=== PATIENT | female | born 1990 | race American Indian/Alaskan Native ===

== ENCOUNTER 2017-04-18 10:48 | Day surgery (SDC) | payer OTHER ==
[~2017-04-18] VITALS: Ht 152.4 cm; Wt 74.6 kg
[~2017-04-18 10:48] MED LIST: CITA20 PO; CYCL10 PO; Depo-Prove150 MG/11; GLIP10ER PO; HYDR1TAB94 PO; Humulin R500 UNIT/1 IJ; IBUP800 PO; INSN100I SUBQ; INSR10I SUBQ; OXCA150 PO; OXYACE5T PO; PANT20 PO; PIOG30 PO; Sudogest30 MG PO; TRAM50; TRAZ150T57; Zithromax250 MG PO; Zofran Odt4 MG PO
[2018-03-29] MEDS ORDERED: Zofran4 MG PO (14:24)
[2018-03-29] MEDS ORDERED: KETO10 PO (14:24)
== END 2017-04-18 13:29 | disposition home or self-care (01) ==
LOC: ORSCSDS 10:48
PROVIDERS: Internal Medicine Gastroenterology
PROC: 0DBE8ZX Excision of Large Intestine, Via Natural or Artificial Opening Endoscopic, Diagnostic (ICD-10-PCS; principal; 2017-04-18 12:00)
DX: K62.5 Hemorrhage of anus and rectum (principal); R10.9 Unspecified abdominal pain; R19.4 Change in bowel habit; E11.9 Type 2 diabetes mellitus without complications; E78.5 Hyperlipidemia, unspecified; Z87.891 Personal history of nicotine dependence; Z79.4 Long term (current) use of insulin; Z79.899 Other long term (current) drug therapy
CPT/HCPCS: 82947; 88305; J7120

== ENCOUNTER 2018-08-10 18:42 | Emergency (ER) | payer OTHER ==
[~2018-08-10] VITALS: Ht 149.9 cm; Wt 75.8 kg
[~2018-08-10 18:42] MED LIST changes: +KETO10 PO; +Zofran4 MG PO
[2018-08-10] MEDS ORDERED: BUSP5 PO (19:27)
== END 2018-08-10 21:35 | disposition home or self-care (01) ==
LOC: ER 18:42
DX: S97.82XA Crushing injury of left foot, initial encounter (principal); E11.9 Type 2 diabetes mellitus without complications; Z88.0 Allergy status to penicillin; Z88.2 Allergy status to sulfonamides; Z91.018 Allergy to other foods; Z88.8 Allergy status to other drugs, medicaments and biological substances; Z87.891 Personal history of nicotine dependence; W22.8XXA Striking against or struck by other objects, initial encounter
CPT/HCPCS: 73630

== ENCOUNTER 2018-09-04 22:50 | Emergency (ER) | payer OTHER ==
[~2018-09-04] VITALS: Ht 149.9 cm; Wt 74.8 kg
[~2018-09-04 22:50] MED LIST changes: +BUSP5 PO
== END 2018-09-05 03:34 | disposition home or self-care (01) ==
LOC: ER 22:50
DX: S60.221A Contusion of right hand, initial encounter (principal); W22.8XXA Striking against or struck by other objects, initial encounter; E11.9 Type 2 diabetes mellitus without complications; Z87.891 Personal history of nicotine dependence; Z79.899 Other long term (current) drug therapy; Z79.4 Long term (current) use of insulin
CPT/HCPCS: 29125; 73130; 96372-59; 99283-25; J1885

== ENCOUNTER 2018-11-13 06:08 | Day surgery (SDC) | payer OTHER ==
[~2018-11-13] VITALS: Ht 149.9 cm; Wt 75.0 kg
[~2018-11-13 06:08] MED LIST changes: +ATOR10 PO; +GABA600 PO; -Humulin R500 UNIT/1 IJ; +Humulin R500 UNIT/1 SC; -TRAZ150T57; +TRAZ150T57 PO
--- NOTE | 2018-11-13 06:49 | NUR ---
PT ADMITTED TO [facility]. AGREES WITH PLANNED SURGERY. LUNG SOUNDS CLEAR.
--- NOTE | 2018-11-13 10:25 | NUR ---
PT TOLERATED PUDDING, JUICE AND JELLO WITHOUT DIFFICULTIES, ONLY C/O IS GAS PAIN, PT WAS ABLE TO AMBULATED AND VOID. VERBALIZED READY FOR DC HOME AND GETTING DRESSED. STERI STRIPS TO ABD C/D/I, NO NEW OOZING. WILL CALL FOR W/C RIDE. IS HERE AND IS RIDE HOME.
--- NOTE | 2018-11-14 10:05 | NUR ---
11/14/18 1005 Yanelis Garza VERIFICATIONS: EDIT CHART.
== END 2018-11-13 10:30 | disposition home or self-care (01) ==
LOC: ORSCMMR 06:08 → ORD 07:30 → ORSCMMR 07:30
PROVIDERS: Obstetrics & Gynecology
PROC: 0UT74ZZ Resection of Bilateral Fallopian Tubes, Percutaneous Endoscopic Approach (ICD-10-PCS; principal; 2018-11-13 07:30)
DX: Z30.2 Encounter for sterilization (principal); Z87.891 Personal history of nicotine dependence; E11.9 Type 2 diabetes mellitus without complications; Z79.899 Other long term (current) drug therapy; Z79.4 Long term (current) use of insulin; E66.9 Obesity, unspecified; Z68.33 Body mass index [BMI] 33.0-33.9, adult
CPT/HCPCS: 82947; 88302; J1885; J2250; J2405; J2704; J2710; J3010; J7120; J7799

== ENCOUNTER → 2020-12-16 | Outpatient (CLI) | payer OTHER ==
[2020-12-16 15:24] LABS: Thyroid Stimulating Hormone 0.592 uIU/mL (0.360-4.800); Troponin I <0.017 ng/mL (0.000-0.040)
[2020-12-16 16:04] LABS: BASOPHILS ABSOLUTE AUTO 0.03 K/mm3 (0.00-0.23); BASOPHILS PERCENT AUTO 0 % (0-2); EOSINOPHILS ABSOLUTE AUTO 0.25 K/mm3 (0.00-0.68); EOSINOPHILS PERCENT AUTO 4 % (0-6); Hematocrit 44.9 % (33.0-51.0); Hemoglobin 15.2 g/dL (11.5-16.0); IMMATURE GRAN ABSOLUTE AUTO 0.01 K/mm3 (0.00-0.10); IMMATURE GRAN PERCENT AUTO 0 % (0-1); LYMPHOCYTES ABSOLUTE AUTO 2.21 K/mm3 (0.84-5.20); LYMPHOCYTES PERCENT AUTO 31 % (21-46); MONOCYTES ABSOLUTE AUTO 0.77 K/mm3 (0.16-1.47); MONOCYTES PERCENT AUTO 11 % (4-13); Mean Corpuscular HGB 27.4 pg (26.0-34.0); Mean Corpuscular HGB Conc 33.9 g/dL (31.5-36.5); Mean Corpuscular Volume 81 fL (80-100); Mean Platelet Volume 10.7 fL (9.1-12.4); NEUTROPHILS PERCENT AUTO 54 % (41-73); Platelet Count 281 K/mm3 (150-400); RDW Standard Deviation 37.7 fL (35.1-46.3); Red Blood Cell Count 5.55 M/mm3 (3.80-5.20); White Blood Cell Count 7.07 K/mm3 (4.00-11.30)
[2020-12-16 16:21] LABS: Alanine Aminotransfer (ALT/SGP 37 U/L (12-78); Albumin, Blood 4.2 g/dL (3.4-5.0); Albumin/Globulin Ratio 0.9 (0.8-1.8); Alk Phos 84 U/L (40-126); Anion Gap 13 mmol/L (6-16); Aspartate Aminotrans (AST/SGOT 30 U/L (12-37); Bilirubin, Total 0.5 mg/dL (0.1-1.0); Blood Urea Nitrogen 9 mg/dL (8-24); Bun/Creatinine Ratio 13.6 (12.0-20.0); CO2, Blood 25 mmol/L (21-32); Calcium, Blood 9.4 mg/dL (8.5-10.1); Chloride, Blood 99 mmol/L (98-108); Creatinine, Blood 0.66 mg/dL (0.40-1.00); Globulin, Blood 4.6 g/dL (2.2-4.0); Glomerular Filtration Rate >60 (60-); Glucose, Blood 355 mg/dL (70-99); Potassium, Blood 3.6 mmol/L (3.5-5.5); Sodium, Blood 137 mmol/L (136-145); Total Protein, Blood 8.8 g/dL (6.4-8.2)
== END | disposition home or self-care (01) ==
LOC: LAB SHORT 15:01
PROVIDERS: Physician Assistant Surgical
DX: R07.9 Chest pain, unspecified (principal); R53.83 Other fatigue
CPT/HCPCS: 80053; 84443; 84484; 85025; 85379

== ENCOUNTER 2021-12-13 22:10 | Inpatient (IN) | payer OTHER ==
[~2021-12-13] VITALS: Ht 149.9 cm; Wt 57.1 kg
[~2021-12-13 22:10] MED LIST changes: +BENZ100A PO; +XOLIDO XP118 ML TOP
[2021-12-13 23:01] LABS: BASOPHILS ABSOLUTE AUTO 0.07 K/mm3 (0.00-0.23); BASOPHILS PERCENT AUTO 0 % (0-2); EOSINOPHILS ABSOLUTE AUTO 0.35 K/mm3 (0.00-0.68); EOSINOPHILS PERCENT AUTO 2 % (0-6); Hematocrit 39.1 % (33.0-51.0); Hemoglobin 13.5 g/dL (11.5-16.0); IMMATURE GRAN ABSOLUTE AUTO 0.07 K/mm3 (0.00-0.10); IMMATURE GRAN PERCENT AUTO 0 % (0-1); LYMPHOCYTES ABSOLUTE AUTO 2.96 K/mm3 (0.84-5.20); LYMPHOCYTES PERCENT AUTO 17 % (21-46); MONOCYTES ABSOLUTE AUTO 1.12 K/mm3 (0.16-1.47); MONOCYTES PERCENT AUTO 6 % (4-13); Mean Corpuscular HGB 27.7 pg (26.0-34.0); Mean Corpuscular HGB Conc 34.5 g/dL (31.5-36.5); Mean Corpuscular Volume 80 fL (80-100); Mean Platelet Volume 9.8 fL (9.1-12.4); NEUTROPHILS ABSOLUTE AUTO 13.26 K/mm3 (1.96-9.15); NEUTROPHILS PERCENT AUTO 74 % (41-73); Platelet Count 432 K/mm3 (150-400); RDW Coefficient Variation 12.1 % (11.7-14.2); RDW Standard Deviation 35.4 fL (35.1-46.3); Red Blood Cell Count 4.88 M/mm3 (3.80-5.20); White Blood Cell Count 17.83 K/mm3 (4.00-11.30)
[2021-12-13 23:19] LABS: Albumin, Blood 3.2 g/dL (3.4-5.0); Albumin/Globulin Ratio 0.6 (0.8-1.8); Bilirubin, Total 0.5 mg/dL (0.1-1.0); Bun/Creatinine Ratio 7.1 (12.0-20.0); Calcium, Blood 9.7 mg/dL (8.5-10.1); Creatinine, Blood 0.42 mg/dL (0.40-1.00); Globulin, Blood 5.5 g/dL (2.2-4.0); Potassium, Blood 2.6 mmol/L (3.5-5.5); Total Protein, Blood 8.7 g/dL (6.4-8.2)
[2021-12-14 06:13] LABS: Albumin, Blood 2.6 g/dL (3.4-5.0); Albumin/Globulin Ratio 0.6 (0.8-1.8); Bilirubin, Total 0.7 mg/dL (0.1-1.0); Bun/Creatinine Ratio 9.4 (12.0-20.0); Calcium, Blood 8.3 mg/dL (8.5-10.1); Creatinine, Blood 0.32 mg/dL (0.40-1.00); Globulin, Blood 4.5 g/dL (2.2-4.0); Total Protein, Blood 7.1 g/dL (6.4-8.2)
[2021-12-14 06:19] LABS: Bun/Creatinine Ratio 6.3 (12.0-20.0); Calcium, Blood 8.2 mg/dL (8.5-10.1); Creatinine, Blood 0.32 mg/dL (0.40-1.00)
[2021-12-14] MEDS ORDERED: HUMULIN R500 UNIT/2 SC (10:57)
[2021-12-14] MEDS ORDERED: BYDUREON B2 MG/0.81 (11:00)
--- NOTE | 2021-12-14 11:51 | NUR ---
DR. ARANA AT BEDSIDE AT ABOUT 1000 AND TONSIL ABSCESS DRAINED AT BEDSIDE.
--- NOTE | 2021-12-14 11:52 | NUR ---
DR. WALLER CALLED AT ABOUT 1020 CONCERNING PT BLOOD SUGAR AND HOME INSULIN COVERAGE, SEE NEW ORDERS AND MED REC EDIT. DR. WALLER NOTIFIED THAT DR. ARANA WOULD LIKE TO START IV DECADRON, DR. WALLER PLANS TO SEE PT BEFORE FIRST ADMINSTRATION.
--- NOTE | 2021-12-14 13:50 | NUR ---
SPOKE WITH DR. WALLER AT THIS TIME. SHE IS AWARE OF PT POTASSIUM OF 3.0. SEE NEW ORDERS.
--- NOTE | 2021-12-14 16:48 | NUR ---
SUMMARY: NO ACUTE CHANGE TODAY. VSS, PT A/O. PT REPORTS FEELING BETTER TONIGHT AFTER ABSCESS DRAINED AND DECADRON GIVEN. PT MEDICATED FOR PAIN WITH 1 MG DILAUDID. PT UP WITH SBA FOR SAFETY. IV ANTIBIOTICS INFUSED. PT ABLE TO SWALLOW SMALL SIPS OF FULL LIQUID DIET. PT DENIES ANY SOB OR DIFFICULTLY BREATHING. WILL CTM AND REPORT TO NOC RN
--- NOTE | 2021-12-15 03:28 | NUR ---
SHIFT SUMMARY PT A&OX4, PLEASANT AND COOPERATIVE. NO ACUTE CHANGES DURING SHIFT. MEDICATING FOR PAIN WITH 1MG DILAUDID PER EMAR. ADMINISTERED ROUTINE ABX. PT TOLERATED THEIR FULL LIQUID DINNER, NO N/V. UP WITH SBA TO BATHROOM FOR SAFTEY. CALL LIGHT WITHIN REACH.
[2021-12-15 04:49] LABS: Hematocrit 33.4 % (33.0-51.0); Hemoglobin 11.4 g/dL (11.5-16.0); Mean Corpuscular HGB 28.1 pg (26.0-34.0); Mean Corpuscular HGB Conc 34.1 g/dL (31.5-36.5); Mean Corpuscular Volume 83 fL (80-100); Mean Platelet Volume 9.7 fL (9.1-12.4); Platelet Count 399 K/mm3 (150-400); RDW Coefficient Variation 12.5 % (11.7-14.2); RDW Standard Deviation 38.3 fL (35.1-46.3); Red Blood Cell Count 4.05 M/mm3 (3.80-5.20); White Blood Cell Count 17.98 K/mm3 (4.00-11.30)
[2021-12-15 05:17] LABS: Albumin, Blood 2.5 g/dL (3.4-5.0); Albumin/Globulin Ratio 0.6 (0.8-1.8); Bilirubin, Total 0.6 mg/dL (0.1-1.0); Bun/Creatinine Ratio 23.9 (12.0-20.0); Calcium, Blood 8.9 mg/dL (8.5-10.1); Creatinine, Blood 0.38 mg/dL (0.40-1.00); Globulin, Blood 4.4 g/dL (2.2-4.0); Total Protein, Blood 6.9 g/dL (6.4-8.2)
--- NOTE | 2021-12-15 18:55 | NUR ---
SHIFT SUMMARY PT HAS DONE WELL T/O SHIFT. PT HAS CONTINUED WITH SMALL AMTS PO INTAKE, STATES SHE DOES FEEL LIKE SWELLING HAS IMPROVED SINCE 2ND DOSE OF STEROIDS. ELEVATED BLOOD GLUCOSE T/O SHIFT, PT SWITCHED TO HIGH SLIDING SCALE. INDEPENDENT IN ROOM. MEDICATED TWICE FOR PAIN. VOIDING W/O DIFFICULTY. IVF 125/HR, CONTINUE AT THIS TIME PER MD.
--- NOTE | 2021-12-16 04:29 | NUR ---
SHIFT SUMMARY PT A&OX4, PLEASANT AND COOPERATIVE. NO ACUTE CHANGES DURING SHIFT, VSS. MEDICATED ONCE FOR PAIN DURING SHIFT. ADMINISTERED ROUTINE ABX. SBA TO BATHROOM FOR SAFETY. TOLERATING PO INTAKE. CALLS APPROPRIATELY, CALL LIGHT WITHIN REACH.
--- NOTE | 2021-12-16 08:10 | NUR ---
RN TO ROOM AT APROX 0750. PT APPEARS TO BE SLEEPING COMFORTABLY, AWAKEND EASILY W/VERBAL STIMULI. PT REPORTS FEELING TIRED, REQUESTING TO SLEEP. THIS RN TO COMPLETE FULL ASSESSMENT WHEN PT WAKES.
[2021-12-16 09:46] LABS: Albumin, Blood 2.4 g/dL (3.4-5.0); Anion Gap 7 mmol/L (6-16); Blood Urea Nitrogen 10 mg/dL (8-24); CO2, Blood 26 mmol/L (21-32); Calcium, Blood 8.8 mg/dL (8.5-10.1); Chloride, Blood 102 mmol/L (98-108); Creatinine, Blood 0.29 mg/dL (0.40-1.00); Glomerular Filtration Rate 147 (60-); Glucose, Blood 239 mg/dL (70-99); Phosphorus, Blood 2.9 mg/dL (2.5-4.9); Potassium, Blood 3.4 mmol/L (3.5-5.5); Sodium, Blood 135 mmol/L (136-145)
--- NOTE | 2021-12-16 18:45 | NUR ---
SHIFT SUMMARY DR ARANA TO BEDSIDE THIS AFTERNOON, BEDSIDE I&-6ML THICK PURULENT FLUID DRAINED FROM L CHRISTOPHER-TONSILAR ABCESS. PAIN IMPROVED SINCE. PT ABLE TO EAT 50% OF DINNER. BLOOD GLUCOSE IMPROVED. PER DR ARANA 2 MORE DOSES OF DECADRON TO START TODAY. CONTINUE IV ABX.
[2021-12-17 04:57] LABS: BASOPHILS PERCENT AUTO 1 % (0-2); EOSINOPHILS ABSOLUTE AUTO 0.01 K/mm3 (0.00-0.68); EOSINOPHILS PERCENT AUTO 0 % (0-6); Hematocrit 37.2 % (33.0-51.0); Hemoglobin 12.7 g/dL (11.5-16.0); IMMATURE GRAN PERCENT AUTO 2 % (0-1); LYMPHOCYTES ABSOLUTE AUTO 1.18 K/mm3 (0.84-5.20); LYMPHOCYTES PERCENT AUTO 6 % (21-46); MONOCYTES ABSOLUTE AUTO 0.21 K/mm3 (0.16-1.47); MONOCYTES PERCENT AUTO 1 % (4-13); Mean Corpuscular HGB 27.3 pg (26.0-34.0); Mean Corpuscular HGB Conc 34.1 g/dL (31.5-36.5); Mean Corpuscular Volume 80 fL (80-100); NEUTROPHILS PERCENT AUTO 90 % (41-73); Platelet Count 451 K/mm3 (150-400); RDW Coefficient Variation 12.3 % (11.7-14.2); RDW Standard Deviation 35.8 fL (35.1-46.3); Red Blood Cell Count 4.65 M/mm3 (3.80-5.20)
[2021-12-17 05:26] LABS: Albumin, Blood 2.5 g/dL (3.4-5.0); Anion Gap 9 mmol/L (6-16); Blood Urea Nitrogen 11 mg/dL (8-24); Bun/Creatinine Ratio 31.8 (12.0-20.0); CO2, Blood 26 mmol/L (21-32); Calcium, Blood 9.3 mg/dL (8.5-10.1); Chloride, Blood 98 mmol/L (98-108); Creatinine, Blood 0.35 mg/dL (0.40-1.00); Glomerular Filtration Rate 141 (60-); Glucose, Blood 410 mg/dL (70-99); Phosphorus, Blood 5.7 mg/dL (2.5-4.9); Potassium, Blood 4.4 mmol/L (3.5-5.5); Sodium, Blood 133 mmol/L (136-145)
--- NOTE | 2021-12-17 10:35 | NUR ---
DR. CEJA NOTIFIED REGARDING PT'S ELEVATED CBG THIS AM, ORDERED ADDITIONAL 3 UNITS HUMALOG.
--- NOTE | 2021-12-17 17:10 | NUR ---
SUMMARY CBG'S ELEVATED TODAY, 251 CURRENTLY, COVERED PER HISS, PT C/O SLIGHTLY MORE PAIN ON L THROAT/NECK AREA, TORADOL GIVEN, DENIED ANY NEED FOR PAIN MEDS MOST OF THE DAY, PT ALSO REPORTED FEELING MORE PURULENT DRAINAGE FROM THROAT AREA, ENCOURAGED OOB TO CHAIR AND TO AMBULATE DOWN THE HALLS, PT ONLY AMBULATED IN ROOM AND SITS ON EDGE OF BED TO EAT, USING KPAD ON L NECK AREA, GIVEN SALINE MOUTH RINSE AND MOUTHWASH, NO OTHER CHANGES THIS SHIFT.
--- NOTE | 2021-12-17 21:25 | NUR ---
BLOOD SUGAR CHULA PEREZ NP NOTIFIED OF BLOOD SUGAR OF 354. MEDICATED PER HIGH SLIDING SCALE 6 UNITS, NOTIFIED HIM OF THAT ALSO. HE IS AWARE THAT PT IS ON IV DECADRON. HE DID NOT GIVE ANY ADDITIONAL INSULIN ORDERS AND STATES WE WILL SEE WHAT BLOOD GLUCOSE READINGS ARE IN THE MORNING.
--- NOTE | 2021-12-18 04:39 | NUR ---
SHIFT SUMMARY PT HAS SLEPT OFF AND ON T/O SHIFT. PT CONTINUES TO HAVE INTERMITTENT PAIN IN HER THROAT AND NECK WHERE ABCESS IS LOCATED. PT MEDICATED PER EMAR ORDERS WITH EFFECT. PT ALSO COMPLAINS OF NAUSEA THIS SHIFT. IT APPEARS THAT THE SWELLING TO HER JAW HAS RETURNED SOME SINCE IT WAS DRAINED YESTERDAY. BG STILL ELEVATED WITH IV DECADRON, ADDRESSED BLOOD SUGAR WITH PROVIDER THERE WERE NO NEW ORDERS GIVEN. POSSIBLE DC TODAY, BED IN LOWEST POSITION, CALL LIGHT WITHIN REACH.
[2021-12-18 06:26] LABS: Albumin, Blood 2.4 g/dL (3.4-5.0); Anion Gap 7 mmol/L (6-16); Blood Urea Nitrogen 17 mg/dL (8-24); Bun/Creatinine Ratio 45.8 (12.0-20.0); CO2, Blood 30 mmol/L (21-32); Chloride, Blood 96 mmol/L (98-108); Creatinine, Blood 0.37 mg/dL (0.40-1.00); Glomerular Filtration Rate 139 (60-); Glucose, Blood 371 mg/dL (70-99); Phosphorus, Blood 5.1 mg/dL (2.5-4.9); Sodium, Blood 133 mmol/L (136-145)
--- NOTE | 2021-12-18 17:29 | NUR ---
SUMMARY CBG'S CONT. TO BE ELEVATED, DR. STEVE AWARE, ADJUSTMENTS MADE TO INSULIN REGIMEN, INDEPENDENT IN ROOM, ICE PACK TO L NECK AREA OFF AND ON, TORADOL FOR PAIN, NORCO ORDERED THIS EVENING, PT REPORTS HAVING MORE DRAINAGE IN THROAT, CONT. SALINE MOUTH RINSES, NO ACUTE CHANGES THIS SHIFT.
--- NOTE | 2021-12-18 20:15 | NUR ---
BLOOD SUGAR PTS SCG IS 423, MEDICATED WITH 6 UNITS PER EMAR. CALL PLACED TO HOSPITALIST, RECCOMENDED TO RECHECK CBG IN ONE HOUR AND NOTIFY IF STILL ELEVATED.
--- NOTE | 2021-12-18 21:34 | NUR ---
BLOOD SUGAR CBG RECHECKED AND BLOOD SUGAR IS STILL ELAVTED AT 382. CALLED PLACED TO HOSPOTALIST. ORDER RECIEVED FOR OTD OF 6 UNITS OF HUMALOG.
--- NOTE | 2021-12-19 04:05 | NUR ---
VSS. PT SLEPT ON AND OFF T/O THE NIGHT. PAIN HAS BEEN MANAGED WITH TORADOL AND NORCO. IT IS NOTED THAT THE PTS THROAT AND JAW HAVE BECOME SWOLLEN T/O THE SHIFT, THE PT HAS NOT C/O ANY DIFFICULTY BREATHING, SWALLOWING, OR FEELING SOB. ICE AND HEAT AND BEEN USED ALONG SIDE THE TORADOL AND STEROIDS TO COMBAT SWELLING. PT NOTED INCREASED SWELLING AFTER LENGTHY CONVORSATION ON THE PHONE. PT HAS BEEN ABLE TO DO GENTLE MOUTH WASHES WITH SALINE TO HELP CLEAN UP ANY DRAINAGE ACQUIRED FROM HER ABSCESS. THE PT IS CURRENTLY SLEEPING, IN NO DISTRESS. CALL LIGHT IN REACH.
--- NOTE | 2021-12-19 08:08 | NUR ---
PT AWAKENS EASILY TO VERBAL STIMULI. PT REPORTS OVERALL THAT SHE IS FEELING BETTER, SWELLING DECREASED ON L SIDE THROAT/FACE SINCE SUNDAY. PT REPORTS SWALLOWING EASIER. HOPFUL THAT SHE WILL BE ABLE TO DC HOME TODAY.
--- NOTE | 2021-12-19 21:02 | NUR ---
BLOOD SUGAR CALL PLACED TO DR. BRYSON FOR A CBG OF 391. OBTAINED ORDERS FOR OTD 15U GLARGINE.
--- NOTE | 2021-12-20 03:56 | NUR ---
VSS. PT HAS SLEPT WELL T/O THE NIGHT. MEDICATED FOR PAIN TWO TIMES, ONCE WITH TORADOL AND ANOTHER WITH NORCO. HS CBG NOTED TO BE ELEVATED LAST NIGHT, OBTAINED AN ORDER FROM THE HOSPITALIST FOR AN EXTRA 15U OF GLARGINE. PATIENT STATES THAT SHE FEELS IF THE SWELLING IN HER JAW AND THROAT HAS GONE DOWN, ALONG WITH THERE BEING LESS DISCHARGE FROM THE ABSCESS ON HER TONSIL. PT TOLLERATINE PO INTAKE WELL. PT HAS NOT C/O ANY SOB, TROUBLE SWOLLOWING, OR FEELING IF HER THROAT IS GETTING TIGHT. THE PATIENT IS CURRENTLY SLEEPING, IN NO DISTRESS.
--- NOTE | 2021-12-20 06:22 | NUR ---
PT IS A NEW ADMIT FROM THE ER, ADMITTED FOR CP. UPON ARRIVING TO THE FLOOR THE PT HAS NO CP AND DENIES ANY SOB, DIZINESS, OR LIGHTHEADEDNESS. HE IS A/OX4 AND INDEPENDNENT. TELE READS SR IN THE 80'S. CIWA SCORE IS 0. VSS. PT IS CURRENTLY RESTING, IN NO DISTRESS.
--- NOTE | 2021-12-20 08:07 | NUR ---
PT REPORTS FEELING NAUSEATED THIS AM, MEDICATED WITH 4MG ZOFRAN IVP. PT ALSO EDUCATED ON ADVANCING DIET SLOWLY. PT ALSO GIVEN MIRALAX PT REPORTS ONLY SMALL BM X'S 2 SINCE ADMIT.
[2021-12-20] MEDS ORDERED: VISBIOME 112.51 EACH PO (12:25)
[2021-12-20] MEDS ORDERED: CLINDAMYCIN HCL75 MG PO (12:28)
[2021-12-20] MEDS ORDERED: TRAM50 PO (12:41)
--- NOTE | 2021-12-20 15:58 | NUR ---
DISCHARGE PT DISCHARGED HOME FORM UNIT AT APROX 1600. PT GIVEN WRITTEN AND VERBAL DC INSTRUCTIONS AND VERBALIZED UNDERSTANDING OF THESE INSTRUCTIONS. DR ARANA'S OFFICE NOTIFIED THAT PT WILL NEED A FOLLOW UP VIA VOICEMAIL FOR TIRE INSPECTOR X'S 2. PERSCRIPTIONS FOR ABX CALLED TO [facility] AND WRITTEN RX FOR TRAMADOL GIVEN TO PT. DECLINED WC TO CAR, AMBULATED INDEPENDENTLY
== END 2021-12-20 16:00 | disposition home or self-care (01) | DRG 872 ==
LOC: ER 22:10 → SURS 12-14 02:57
PROVIDERS: Internal Medicine; Physician Assistant; Student in an Organized Health Care Education/Training Program; ADMIT Internal Medicine
PROC: 0C9P3ZZ Drainage of Tonsils, Percutaneous Approach (ICD-10-PCS; principal; 2021-12-14)
PROC: 3E03329 Introduction of Other Anti-infective into Peripheral Vein, Percutaneous Approach (ICD-10-PCS; 2021-12-14)
DX: A41.9 Sepsis, unspecified organism (principal); J36 Peritonsillar abscess; E87.1 Hypo-osmolality and hyponatremia; E87.6 Hypokalemia; E11.65 Type 2 diabetes mellitus with hyperglycemia; F17.210 Nicotine dependence, cigarettes, uncomplicated; Z88.0 Allergy status to penicillin; Z88.8 Allergy status to other drugs, medicaments and biological substances; Z88.2 Allergy status to sulfonamides; Z79.4 Long term (current) use of insulin; Z79.899 Other long term (current) drug therapy
CPT/HCPCS: 36415; 70491; 80048; 80053; 80069; 82947; 83036; 83690; 85025; 85027; 94760; 96365; 96367; 96375; 99285-25; A9270; J1100; J1170; J1650; J1815; J1885; J2405; J3010; J3480; J7030; J7040; J7050; Q9967

== ENCOUNTER 2021-12-25 15:22 | Emergency (ER) | payer OTHER ==
[~2021-12-25] VITALS: Ht 149.9 cm; Wt 57.1 kg
[~2021-12-25 15:22] MED LIST changes: +BYDUREON B2 MG/0.81; +CLINDAMYCIN HCL75 MG PO; +HUMULIN R500 UNIT/2 SC; +TRAM50 PO; +VISBIOME 112.51 EACH PO
== END 2021-12-25 18:47 | disposition left against medical advice (07) ==
LOC: ER 15:22
DX: J36 Peritonsillar abscess (principal); Z53.21 Procedure and treatment not carried out due to patient leaving prior to being seen by health care provider
CPT/HCPCS: 99281

== ENCOUNTER 2021-12-25 20:51 | Emergency (ER) | payer OTHER ==
[~2021-12-25] VITALS: Ht 149.9 cm; Wt 54.4 kg
[2021-12-25 21:28] LABS: Hematocrit 44.9 % (33.0-51.0); Mean Corpuscular HGB 27.5 pg (26.0-34.0); Mean Corpuscular HGB Conc 33.4 g/dL (31.5-36.5); Mean Corpuscular Volume 82 fL (80-100); Mean Platelet Volume 9.4 fL (9.1-12.4); Platelet Count 556 K/mm3 (150-400); RDW Coefficient Variation 12.3 % (11.7-14.2); RDW Standard Deviation 36.8 fL (35.1-46.3); Red Blood Cell Count 5.46 M/mm3 (3.80-5.20); White Blood Cell Count 18.79 K/mm3 (4.00-11.30)
[2021-12-25 21:47] LABS: Albumin, Blood 3.4 g/dL (3.4-5.0); Albumin/Globulin Ratio 0.5 (0.8-1.8); Bilirubin, Total 0.4 mg/dL (0.1-1.0); Bun/Creatinine Ratio 40.9 (12.0-20.0); Calcium, Blood 10.3 mg/dL (8.5-10.1); Creatinine, Blood 0.34 mg/dL (0.40-1.00); Globulin, Blood 6.8 g/dL (2.2-4.0); Potassium, Blood 3.5 mmol/L (3.5-5.5); Total Protein, Blood 10.2 g/dL (6.4-8.2)
[2021-12-25 21:53] LABS: BASOPHILS ABSOLUTE MAN 0.18 K/mm3 (0.00-0.23); BASOPHILS PERCENT MAN 1 % (0-2); EOSINOPHILS ABSOLUTE MAN 0.56 K/mm3 (0.00-0.68); EOSINOPHILS PERCENT MAN 3 % (0-6); LYMPHOCYTES % ATYPICAL MANUAL 2 % (0-0); LYMPHOCYTES ABSOLUTE MAN 6.57 K/mm3 (0.84-5.20); LYMPHOCYTES PERCENT MAN 33 % (21-46); MONOCYTES ABSOLUTE MAN 0.37 K/mm3 (0.16-1.47); MONOCYTES PERCENT MAN 2 % (4-13); NEUTROPHILS ABSOLUTE MAN 11.08 K/mm3 (1.96-9.15); SEG NEUTROPHILS PERCENT MAN 59 % (41-73); TOTAL CELLS COUNTED 100
== END 2021-12-25 23:41 | disposition home or self-care (01) ==
LOC: ER 20:51
PROVIDERS: Physician Assistant
DX: J36 Peritonsillar abscess (principal); E11.9 Type 2 diabetes mellitus without complications; Z88.0 Allergy status to penicillin; Z88.2 Allergy status to sulfonamides; Z88.8 Allergy status to other drugs, medicaments and biological substances; Z91.018 Allergy to other foods; Z79.899 Other long term (current) drug therapy; Z79.4 Long term (current) use of insulin
CPT/HCPCS: 36415; 80053; 82947; 85025; J1885; J2405; J7030

== ENCOUNTER 2022-07-28 19:28 | Emergency (ER) | payer OTHER ==
[~2022-07-28] VITALS: Ht 149.9 cm; Wt 55.8 kg
[~2022-07-28 19:28] MED LIST changes: +DULOXETINE HCL60 M1 PO; +MEDR10 PO
[2022-07-28 19:32] VITALS: BP 124/85
== END 2022-07-28 20:27 | disposition home or self-care (01) ==
LOC: ER 19:28
DX: J02.9 Acute pharyngitis, unspecified (principal); E11.9 Type 2 diabetes mellitus without complications; Z88.0 Allergy status to penicillin; Z88.2 Allergy status to sulfonamides; Z88.8 Allergy status to other drugs, medicaments and biological substances; Z91.018 Allergy to other foods; Z79.899 Other long term (current) drug therapy; Z79.4 Long term (current) use of insulin
CPT/HCPCS: 87081; 87147; 87430; 99283

== ENCOUNTER 2023-07-23 09:04 | Day surgery (SDC) | payer OTHER ==
[~2023-07-23] VITALS: Ht 152.4 cm; Wt 54.4 kg
[~2023-07-23 09:04] MED LIST changes: +BASAGLAR K100 UNIT/1; +INSULANI SC; +MECL25 PO; +Oxymetazoline 0.05% Nasal Relief Spray 15mL BTL ONE; +PROC5 PO
[2023-07-23] MEDS ORDERED: Lactated Ringer's 1,000 ML IV ONE ×2 (09:13→10:18)
[2023-07-23] MEDS ORDERED: FENO160 (09:46)
[2023-07-23] MEDS ORDERED: GLIP10 (09:47)
[2023-07-23] MEDS ORDERED: HUMULIN R500 UNIT/1 (09:48)
[2023-07-23] MEDS ORDERED: ALBU90OI (09:50)
[2023-07-23] MEDS ORDERED: CLAR500 (09:51)
[2023-07-23] MEDS ORDERED: propofoL 20 ML IV ONE (09:52)
[2023-07-23] MEDS ORDERED: IBUP800 (09:52)
[2023-07-23] MEDS ORDERED: FentaNYL Citrate 50 MCG/ML 2 ML Injection ONE ×2 (09:53→11:33)
[2023-07-23] MEDS ORDERED: Rocuronium Bromide 10 MG/ML 5ML Injection IV ONE (09:54)
[2023-07-23] MEDS ORDERED: MELATONIN5 M1 (09:55)
[2023-07-23] MEDS ORDERED: Ipratropium/Albuterol SulF 2.5-0.5MG/3 ML Amp ONE (10:35)
[2023-07-23] MEDS ORDERED: Dexamethasone Sod Phos 10 MG/ML 1ML VIAL ONE (10:38)
[2023-07-23] MEDS ORDERED: Midazolam HCl 1MG / ML 2ML Vial ONE (10:38)
[2023-07-23] MEDS ORDERED: Ondansetron HCl 2 MG / ML 2ML Vial ONE (10:38)
[2023-07-23] MEDS ORDERED: Sugammadex Sodium 200 MG/2ML SDV (100 MG/ML) ONE (11:10)
--- NOTE | 2023-07-23 11:40 | NUR ---
07/23/23 1140 Sybil Leslie O2 DECREASED FROM 15L TO 5L VIA FACE TENT AT 1134. AT 1140 SATS ARE 100%. AT 1140 O2 DC'D.
[2023-07-23 12:06] VITALS: BP 112/65
--- NOTE | 2023-07-23 12:34 | NUR ---
07/23/23 Felecia4 Sybil Leslie PRIOR TO DISCHARGE PT STATED PAIN WAS TOLERABLE AND DENIED NAUSEA. RN WENT OVER DISCHARGE INSTRUCTIONS WITH PT AND PT'S UNTIL ALL QUESTIONS WERE ANSWERED. PT VOICED SATISFACTION WITH CARE TODAY. PT WHEELED OUT TO 'S CAR VIA WHEELCHAIR. PT SENT HOME WITH DC INSTRUCTIONS, PERSONAL BELONGINGS (WALLET), AND ICE CHIPS.
== END 2023-07-23 12:30 | disposition home or self-care (01) ==
LOC: ORSCSDS 09:04
PROVIDERS: Otolaryngology
PROC: 0CBPXZZ Excision of Tonsils, External Approach (ICD-10-PCS; principal; 2023-07-23 10:30)
DX: J36 Peritonsillar abscess (principal); E11.9 Type 2 diabetes mellitus without complications; J45.909 Unspecified asthma, uncomplicated; Z79.4 Long term (current) use of insulin; Z79.84 Long term (current) use of oral hypoglycemic drugs; Z79.899 Other long term (current) drug therapy; Z87.891 Personal history of nicotine dependence
CPT/HCPCS: 82947; 88304; A9270; J1100; J2250; J2405; J2704; J3010; J7120

== ENCOUNTER 2024-03-31 01:21 | Inpatient (IN) | payer OTHER ==
[2024-03-31] VITALS (21 sets, daily range): BP systolic 101–138; BP diastolic 71–95
[~2024-03-31] VITALS: Ht 152.4 cm; Wt 53.0 kg
[~2024-03-31 01:21] MED LIST changes: +ALBU90OI; +CLAR500; +FENO160; +GLIP10; +HUMULIN R500 UNIT/1; +IBUP800; +MELATONIN5 M1; -Oxymetazoline 0.05% Nasal Relief Spray 15mL BTL ONE
[2024-03-31] MEDS ORDERED: Ondansetron HCl 2 MG / ML 2ML Vial IV ONE (01:40)
[2024-03-31] MEDS ORDERED: NS 1,000 ML IV SCH (01:40)
[2024-03-31] MEDS ORDERED: Metoclopramide HCl 5MG / ML 2ML Vial IV ONE (01:45)
[2024-03-31 01:53] LABS: Base Excess Venous -28.2 mmol/L; Bicarbonate Venous 7.5 mmol/L (24.0-30.0); PCO2 Venous 17.4 mmHg (38-42)
[2024-03-31 01:54] LABS: pH Blood Venous 6.95 (7.34-7.37)
[2024-03-31 01:58] LABS: BASOPHILS ABSOLUTE AUTO 0.11 K/mm3 (0.00-0.23); BASOPHILS PERCENT AUTO 0 % (0-2); EOSINOPHILS ABSOLUTE AUTO 0.01 K/mm3 (0.00-0.68); EOSINOPHILS PERCENT AUTO 0 % (0-6); Hematocrit 48.9 % (33.0-51.0); Hemoglobin 16.1 g/dL (11.5-16.0); IMMATURE GRAN ABSOLUTE AUTO 0.73 K/mm3 (0.00-0.10); IMMATURE GRAN PERCENT AUTO 2 % (0-1); LYMPHOCYTES PERCENT AUTO 4 % (21-46); MONOCYTES ABSOLUTE AUTO 0.64 K/mm3 (0.16-1.47); MONOCYTES PERCENT AUTO 2 % (4-13); Mean Corpuscular HGB 28.1 pg (26.0-34.0); Mean Corpuscular HGB Conc 32.9 g/dL (31.5-36.5); Mean Corpuscular Volume 86 fL (80-100); Mean Platelet Volume 10.9 fL (9.1-12.4); NEUTROPHILS ABSOLUTE AUTO 30.69 K/mm3 (1.96-9.15); NEUTROPHILS PERCENT AUTO 92 % (41-73); Platelet Count 440 K/mm3 (150-400); RDW Coefficient Variation 13.2 % (11.7-14.2); Red Blood Cell Count 5.72 M/mm3 (3.80-5.20); White Blood Cell Count 33.48 K/mm3 (4.00-11.30)
[2024-03-31 02:01] LABS: Source, Urine Clean Catch
[2024-03-31 02:09] LABS: Bilirubin, Urine Neg (Neg); Blood, Urine 2+ (Neg); Glucose Qualitative, Urine 4+ (Neg); Ketones, Urine 4+ (Neg); Leukocyte Esterase, Urine Neg (Neg); Nitrite, Urine Neg (Neg); Protein, Urine 3+ (Neg); Urobilinogen, Urine NORM (Normal)
[2024-03-31 02:43] LABS: Color, Urine Yellow (P-Yellow); U Amphetamine Screen Not Detected; U Barbituate Screen Not Detected; U Benzodiazapine Screen Not Detected; U Buprenorphine Screen Not Detected; U Cannabinoids Screen Not Detected; U Cocaine Screen Not Detected; U Methadone Screen Not Detected; U Methamphetamine Screen Not Detected; U Opiates Screen Not Detected; U Oxycodone Screen Not Detected; U Phencyclidine Screen Not Detected
[2024-03-31 02:44] LABS: Amorphous Light (0-Heavy); Appearance, Urine Hazy (Clear); Bacteria Many /hpf; Red Blood Cells, Urine 0-2 /hpf (0-2); Squamous Epithelial Cells Many /hpf (Few); Yeast/Fungi Urine Few /hpf
[2024-03-31 02:52] LABS: Magnesium, Blood 2.9 mg/dL (1.6-2.4); Thyroid Stimulating Hormone 0.703 uIU/mL (0.360-4.800)
[2024-03-31 02:54] LABS: Influenza A, PCR NEGATIVE (NEGATIVE); Influenza B, PCR NEGATIVE (NEGATIVE); Resp Syncytial Virus, PCR NEGATIVE (NEGATIVE); SARS-Cov-2 (COVID-19) PCR, MMC NEGATIVE (NEGATIVE)
[2024-03-31] MEDS ORDERED: Ciprofloxacin 400MG/D5 200ML 200 ML IV ONE (02:55)
[2024-03-31 02:58] LABS: Albumin, Blood 3.2 g/dL (3.4-5.0); Albumin/Globulin Ratio 0.6 (0.8-1.8); Beta-hydroxybutyrate 104.8 mg/dL (0.2-2.8); Bilirubin, Total 0.6 mg/dL (0.1-1.0); Bun/Creatinine Ratio 47.1 (12.0-20.0); Creatinine, Blood 0.85 mg/dL (0.40-1.00); Globulin, Blood 5.7 g/dL (2.2-4.0); Phosphorus, Blood 6.6 mg/dL (2.5-4.9); Potassium, Blood 4.6 mmol/L (3.5-5.5); Total Protein, Blood 8.9 g/dL (6.4-8.2)
[2024-03-31] MEDS ORDERED: Potassium Chloride 20 MEQ in Sodium Chloride 0.45% 1,000 ML IV SCH (03:05)
[2024-03-31] MEDS ORDERED: Insulin Human Regular 100 UNIT in NS 100 ML IV SCH (03:05)
[2024-03-31] MEDS ORDERED: FLU VACC TS2024-25(6MOS UP)/PF 45 MCG/0.5 ML SYRINGE IM ONE (03:25)
[2024-03-31] MEDS ORDERED: Dextrose 50% 50 ML Vial IV PRN (03:30)
[2024-03-31 03:41] LABS: Glucose, Blood 742 mg/dL (70-99)
[2024-03-31] MEDS ORDERED: Lactated Ringer's 1,000 ML IV SCH ×2 (03:45→05:00)
[2024-03-31] MEDS ORDERED: CYMBALTA30 M2 (05:15)
[2024-03-31 05:25] LABS: Base Excess Venous -29.8 mmol/L; Bicarbonate Venous 6.5 mmol/L (24.0-30.0); pH Blood Venous 6.88 (7.34-7.37)
[2024-03-31] MEDS ORDERED: Sodium Bicarb 8.4% 1 MEQ/ML 50 ML Vial IV ONE (06:15)
--- NOTE | 2024-03-31 06:49 | NUR ---
ADMIT RECEIVED PT FROM ED VIA STRETCHER AT 0442, PT AMBULATED TO BED WITH STANDYBY ASSIST, WEAK AND SOB WITH EXERTION,LABORED BREATHING, C/O BEING THIRSTY, NOTED DRY LIPS AND MOUTH, AFEBRILE, ST 100S, SBP 130S. RESP 22-27 WITH SOFT VOICE, SPO2>90% ON RA, PT ALERT AND ORIENTED X4, FOLLOWS COMMANDS, ABLE TO MAKE NEEDS KNOWN, NO EDEMA NOTED, REGINALD LUNGS CLEAR, PIV TO LEFT AC AND RIGHT WRIST PATENT, INSULIN INFUSING AT 5 UNITS/HR, 1/2 NS WITH 20 KCL INFUSING AT 250 ML/HR, CBG >500 AT 0450 AND 0610, LAB GLUCOSE ORDERED AND DRAWN, LACTIC 2.5, VBS pH 6.88, BICARB 6.5, PCO2 18, NOTIFIED MD WITH ORDERS RECEIVED, INSULIN TITRATED FOR HIGH CBG, PT NPO, ORAL CARE AND MOISTENED MOUTH SWABS GIVEN, PT ATTEMPTED TO EAT ICE CHIPP FROM CUP WITH SWABS IN IT, CUP REMOVED FROM PT REACH, NOTED REDDENED AREA TO RIGHT FACE AND SWOLLEN, INTACT MULTIPLE SCABS TO LOWER BACK, PT ORIENTED TO ROOM, BED CONTROLS, CALL LIGHT. ASSISTED UP X1 TO BSC, VOIDS CLEAR YELLOW URINE WITHOUT DIFFICULTY, ASSISTED BACK TO BED, BED ALARM ON, CALL LIGHT IN REACH
[2024-03-31 07:16] LABS: Potassium, Blood 4.9 mmol/L (3.5-5.5)
[2024-03-31 07:17] LABS: Bun/Creatinine Ratio 60.7 (12.0-20.0); Calcium, Blood 9.2 mg/dL (8.5-10.1); Creatinine, Blood 0.61 mg/dL (0.40-1.00)
[2024-03-31 07:55] LABS: Glucose, Blood 635 mg/dL (70-99)
[2024-03-31] MEDS ORDERED: Enoxaparin 40 MG/0.4 ML SYR SC SCH (09:00)
[2024-03-31 09:01] LABS: Base Excess Venous -24.4 mmol/L; Bicarbonate Venous 8.7 mmol/L (24.0-30.0); pH Blood Venous 7.07 (7.34-7.37)
[2024-03-31 09:24] LABS: Bun/Creatinine Ratio 53.6 (12.0-20.0); Calcium, Blood 8.5 mg/dL (8.5-10.1); Creatinine, Blood 0.52 mg/dL (0.40-1.00); Potassium, Blood 4.3 mmol/L (3.5-5.5)
--- NOTE | 2024-03-31 09:32 | NUR ---
PATIENT EVENT Patient noted by RN to be touching buttons on IV pump. Patient educated on importance of not touching medical equipment. Pump locked for safety and charge rn made aware.
[2024-03-31] MEDS ORDERED: Potassium Chl 20MEQ/Water100ML 100 ML IV STA ×2 (09:41→18:53)
[2024-03-31] MEDS ORDERED: D5W-LR 1,000 ML IV SCH (12:00)
[2024-03-31] MEDS ORDERED: D5W-1/2NS 1,000 ML IV SCH (13:00)
[2024-03-31 13:56] LABS: Base Excess Venous -16.8 mmol/L; Bicarbonate Venous 13.1 mmol/L (24.0-30.0); PCO2 Venous 26.5 mmHg (38-42); pH Blood Venous 7.22 (7.34-7.37)
[2024-03-31 14:33] LABS: Bun/Creatinine Ratio 59.9 (12.0-20.0); Calcium, Blood 9.1 mg/dL (8.5-10.1); Creatinine, Blood 0.43 mg/dL (0.40-1.00); Potassium, Blood 3.9 mmol/L (3.5-5.5)
--- NOTE | 2024-03-31 17:26 | NUR ---
SHIFT SUMMARY Labs improving but gap still open. Still on insulin gtt and cont. fluids. Up with ax1 to the commode. Case management aware of patients issues with insurance and access to insulin supplies
[2024-03-31] MEDS ORDERED: D5W-1/2NS KCl 20mEq 1,000 ML IV SCH (18:00)
[2024-03-31] MEDS ORDERED: Metoclopramide HCl 10 MG Tab PO PRN (18:00)
[2024-03-31] MEDS ORDERED: Metoclopramide HCl 5MG / ML 2ML Vial IV PRN (18:10)
[2024-03-31 18:32] LABS: Bun/Creatinine Ratio 50.5 (12.0-20.0); Calcium, Blood 9.2 mg/dL (8.5-10.1); Creatinine, Blood 0.48 mg/dL (0.40-1.00); Potassium, Blood 3.2 mmol/L (3.5-5.5)
[2024-03-31] MEDS ORDERED: Potassium Chl 20MEQ/Water100ML 100 ML IV SCH (18:45)
--- NOTE | 2024-03-31 18:51 | NUR ---
PROVIDER NOTIFIED. 183 - CALLED Donaldo DONAHUE 3.3. INSULIN GTT STOPPED AND KCL REPLACEMENT ORDERED.
[2024-03-31] MEDS ORDERED: Potassium Chloride 20 MEQ/15 ML UDC PO ONE (19:25)
--- NOTE | 2024-03-31 19:25 | NUR ---
UPDATE 1ST BAG OF 20 mEQ KCL INFUSING AT THIS TIME, INSULIN DRIP ON HOLD, CBG 211, CALLED AND SPOKE WITH MD REGARDING WHEN TO RESTART INSULIN, NEW ORDER RECEIVED FOR PO 40 mEq KCL NOW, INFUSE THE 1ST 20 mEq KCL THEN RESTART INSULIN AT PREVIOUS RATE AND CONTINUE TO MONITOR PER ORDERS
[2024-03-31 20:50] LABS: Bun/Creatinine Ratio 44.4 (12.0-20.0); Calcium, Blood 8.8 mg/dL (8.5-10.1); Creatinine, Blood 0.45 mg/dL (0.40-1.00); Potassium, Blood 3.7 mmol/L (3.5-5.5)
[2024-03-31] MEDS ORDERED: Ondansetron HCl 2 MG / ML 2ML Vial IV PRN (22:05)
[2024-03-31 23:15] LABS: Bun/Creatinine Ratio 39.1 (12.0-20.0); Calcium, Blood 8.6 mg/dL (8.5-10.1); Creatinine, Blood 0.46 mg/dL (0.40-1.00); Potassium, Blood 3.9 mmol/L (3.5-5.5)
[2024-04-01] VITALS (21 sets, daily range): BP systolic 112–153; BP diastolic 76–104
[2024-04-01 04:15] LABS: Bun/Creatinine Ratio 28.8 (12.0-20.0); Calcium, Blood 9.2 mg/dL (8.5-10.1); Creatinine, Blood 0.42 mg/dL (0.40-1.00); Potassium, Blood 3.9 mmol/L (3.5-5.5)
[2024-04-01 04:27] LABS: Base Excess Venous -10.2 mmol/L; Bicarbonate Venous 17.7 mmol/L (24.0-30.0); PCO2 Venous 24.4 mmHg (38-42); pH Blood Venous 7.39 (7.34-7.37)
--- NOTE | 2024-04-01 06:18 | NUR ---
SHIFT SUMMARY CBG EVERY 1 HOUR REMAINING IN 200S, INSULIN GTT TITRATED PER PROTOCOL, POTASSIUM REPLACEMENT COMPLETED AND POTASSIUM 3.9 THIS AM, PT REMAINS ST 110-130S, NAUSEATED AND VOMITING NUMEROUS TIMES THIS SHIFT AND EVERYTIME PT GETS UP TO BSC TO VOID, MEDICATED WITH ZOFRAN IVP X2 AND REGLAN IVP X1, AFEBRILE, SBP 120-130S, PIV TO RIGHT WRIST, LEFT AC AND LEFT UPPER ARM PATENT, D51/2NS WITH 20 KCL INFUSING AT 140 ML/HR, PT ALERT AND ORIENTED X4 ABLE TO MAKE NEEDS KNOWN SIDE RAILS UP X2 CALL LIGHT IN REACH
[2024-04-01 07:57] LABS: Bun/Creatinine Ratio 24.7 (12.0-20.0); Calcium, Blood 8.9 mg/dL (8.5-10.1); Creatinine, Blood 0.45 mg/dL (0.40-1.00); Potassium, Blood 3.9 mmol/L (3.5-5.5)
[2024-04-01] MEDS ORDERED: Scopolamine Hydrobromide Patch TOP SCH (08:20)
[2024-04-01 08:23] LABS: BASOPHILS ABSOLUTE AUTO 0.03 K/mm3 (0.00-0.23); BASOPHILS PERCENT AUTO 0 % (0-2); EOSINOPHILS PERCENT AUTO 0 % (0-6); Hematocrit 32.5 % (33.0-51.0); Hemoglobin 11.5 g/dL (11.5-16.0); IMMATURE GRAN PERCENT AUTO 1 % (0-1); LYMPHOCYTES ABSOLUTE AUTO 2.22 K/mm3 (0.84-5.20); LYMPHOCYTES PERCENT AUTO 12 % (21-46); MONOCYTES ABSOLUTE AUTO 1.09 K/mm3 (0.16-1.47); MONOCYTES PERCENT AUTO 6 % (4-13); Mean Corpuscular HGB 27.3 pg (26.0-34.0); Mean Corpuscular HGB Conc 35.4 g/dL (31.5-36.5); Mean Corpuscular Volume 77 fL (80-100); Mean Platelet Volume 9.9 fL (9.1-12.4); NEUTROPHILS ABSOLUTE AUTO 15.55 K/mm3 (1.96-9.15); NEUTROPHILS PERCENT AUTO 82 % (41-73); Platelet Count 330 K/mm3 (150-400); RDW Coefficient Variation 13.2 % (11.7-14.2); RDW Standard Deviation 36.9 fL (35.1-46.3); Red Blood Cell Count 4.21 M/mm3 (3.80-5.20); White Blood Cell Count 18.99 K/mm3 (4.00-11.30)
[2024-04-01] MEDS ORDERED: LORazepam 2 MG/ML 1ML Injection IV PRN (09:00)
[2024-04-01] MEDS ORDERED: Insulin Glargine-Yfgn 100 Unit/mL 3 ML SYR SC SCH (11:00)
[2024-04-01] MEDS ORDERED: Insulin Human Lispro 100 Units/ML 3ML Syringe SC SCH (11:30)
[2024-04-01 12:52] LABS: Bun/Creatinine Ratio 21.3 (12.0-20.0); Calcium, Blood 9.3 mg/dL (8.5-10.1); Creatinine, Blood 0.42 mg/dL (0.40-1.00); Potassium, Blood 3.8 mmol/L (3.5-5.5)
[2024-04-01 16:32] LABS: Bun/Creatinine Ratio 22.4 (12.0-20.0); Calcium, Blood 8.9 mg/dL (8.5-10.1); Creatinine, Blood 0.4 mg/dL (0.40-1.00); Potassium, Blood 3.1 mmol/L (3.5-5.5)
[2024-04-01] MEDS ORDERED: Potassium Chl 20MEQ/Water100ML 100 ML IV SCH (17:20)
--- NOTE | 2024-04-01 17:45 | NUR ---
SHIFT SUMMARY Gap closed during shift however patient very nauseous and unable to tolerate PO intake. Insulin gtt to be continued until patient can eat. Insulin gtt held in the afternoon due to low potassium, per Resident, will repleate potassium and re-check labs before turning drip back on. Family updated on patient status and plan of care.
[2024-04-01] MEDS ORDERED: D5W-1/2NS KCl 40mEq 1,000 ML IV SCH (19:00)
--- NOTE | 2024-04-01 21:39 | NUR ---
UPDATE ASSUMED CARE OF PT AT 1900, PT LYING IN BED WITH EYES CLOSED, NAUSEATED WITH INTERMITTENT VOMITING, TEMP 99.4F. ST 100-110S, BP STABLE, ON RA SPO2>90%, PALE COMPLEXION AND STATES " I REALLY DONT FEEL WELL" INSULIN REMAINS ON HOLD, KCL I VPB INFUSING PER REPLACEMENT ORDERS, D5W WITH 40 KCL INFUSING AT 125 ML/HR, PT ASSISTED UP TO BSC 2 TIMES AND PT HR 120-150S AND VOMITING , ABLE TO VOID 200ML CLEAR YELLOW URINE HOWEVER REQUESTING LOVELL CATH DUE TO FEELING LIKE ITS HARD TO URINATE AND INCREASED WEAKNESS AND VOMITING, SPOKE WITH MD, WILL PLACE PUREWICK AT THIS TIME TO DECREASE NEED TO GET OUT OF BED AND MONITOR 2039 PT ASSISTED UP BSC AND VOIDS 200ML CLEAR YELLOW URINE, ASSISTED X1 BACK TO BED AND PT STATES "I STILL FEEL LIKE I NEED TO GO" BLADDER SCAN DONE WITH NOTED 981 ML IN BLADDER AND ABD SLIGHLTY DISTENDED AND TENDER, CALLED AND NOTIFIED MD WITH NEW ORDERS RECEIVED FOR LOVELL CATH FOR RETENTION 2100 16 FR LOVELL CATH PLACED WITH STERILE TECHNIQUE PLACED WITH 1400 ML CLEAR YELLOW URINE RETURNED, PT TOLERATED WELL
[2024-04-01 21:55] LABS: Magnesium, Blood 2.1 mg/dL (1.6-2.4)
[2024-04-01 21:56] LABS: Albumin, Blood 2.8 g/dL (3.4-5.0); Albumin/Globulin Ratio 0.6 (0.8-1.8); Bilirubin, Total 0.7 mg/dL (0.1-1.0); Calcium, Blood 9.2 mg/dL (8.5-10.1); Creatinine, Blood 0.45 mg/dL (0.40-1.00); Globulin, Blood 4.9 g/dL (2.2-4.0); Potassium, Blood 4.4 mmol/L (3.5-5.5); Total Protein, Blood 7.7 g/dL (6.4-8.2)
[2024-04-02] VITALS (24 sets, daily range): BP systolic 106–142; BP diastolic 72–100
[2024-04-02 01:31] LABS: Calcium, Blood 9.1 mg/dL (8.5-10.1); Creatinine, Blood 0.41 mg/dL (0.40-1.00); Potassium, Blood 3.9 mmol/L (3.5-5.5)
[2024-04-02 05:51] LABS: Bun/Creatinine Ratio 13.9 (12.0-20.0); Creatinine, Blood 0.43 mg/dL (0.40-1.00); Potassium, Blood 3.7 mmol/L (3.5-5.5)
--- NOTE | 2024-04-02 06:26 | NUR ---
SHIFT SUMMARY PT VOMITING AND NAUSEOUS ALL SHIFT, MEDICATED WITH PRN ZOFRAN X1, REGLAN X1 AND ATIVAN X1 IVP FOR ANXIETY PER EMAR, TMAX 99.4F, LOVELL CATH PLACED FOR URINE RETENTION , LOVELL PATENT AND DRAINING CLEAR YELLOW URINE TO GRAVITY, INSULIN INFUSING AT 3.2 UNITS/KG/HR AND TITRATED PER DKA PROTOCOL,D5 0.45% NS WITH 40 KCL INFUSING AT 125 ML/HR, PIV X3 PATENT ST 100-110S WITH NOTED 120-130S WHEN GETTING OUT OF BED AND VOMITING, SBP 130-150S, ALERT AND ORIENTED X4 FOLLOWS COMMANDS, VOICE SOFT, DR CRISTINA ON UNIT THIS SHIFT AND UPDATED ON PT STATUS WITH NEW LAB ORDERS RECEIVED, SIDE RAILS UP X2 CALL LIGHT IN REACH
[2024-04-02 06:44] LABS: BASOPHILS ABSOLUTE AUTO 0.03 K/mm3 (0.00-0.23); BASOPHILS PERCENT AUTO 0 % (0-2); EOSINOPHILS PERCENT AUTO 0 % (0-6); Hematocrit 33.5 % (33.0-51.0); Hemoglobin 12.2 g/dL (11.5-16.0); IMMATURE GRAN ABSOLUTE AUTO 0.07 K/mm3 (0.00-0.10); IMMATURE GRAN PERCENT AUTO 0 % (0-1); LYMPHOCYTES ABSOLUTE AUTO 2.96 K/mm3 (0.84-5.20); LYMPHOCYTES PERCENT AUTO 19 % (21-46); MONOCYTES ABSOLUTE AUTO 1.28 K/mm3 (0.16-1.47); MONOCYTES PERCENT AUTO 8 % (4-13); Mean Corpuscular HGB 27.5 pg (26.0-34.0); Mean Corpuscular HGB Conc 36.4 g/dL (31.5-36.5); Mean Corpuscular Volume 76 fL (80-100); Mean Platelet Volume 9.9 fL (9.1-12.4); NEUTROPHILS ABSOLUTE AUTO 11.63 K/mm3 (1.96-9.15); NEUTROPHILS PERCENT AUTO 73 % (41-73); Platelet Count 355 K/mm3 (150-400); RDW Coefficient Variation 13.3 % (11.7-14.2); RDW Standard Deviation 36.1 fL (35.1-46.3); Red Blood Cell Count 4.44 M/mm3 (3.80-5.20); White Blood Cell Count 15.97 K/mm3 (4.00-11.30)
--- NOTE | 2024-04-02 09:00 | NUR ---
ASSUMED CARE PT RESTING IN BED, RESPONDING TO VERBAL STIMULI. ON ROOM AIR, SATS IN THE 90'S. CONTINUOUS DIRECTOR OF FUNDRAISING IN PLACE, VSS. INSULIN, D5 1/2 NS INFUSING. RN GAVE BEDSIDE REPORT. NO ACUTE EVENTS NEEDING ADDRESSED AT THIS TIME.
[2024-04-02 09:24] LABS: Calcium, Blood 8.8 mg/dL (8.5-10.1); Creatinine, Blood 0.5 mg/dL (0.40-1.00); Potassium, Blood 3.4 mmol/L (3.5-5.5)
[2024-04-02] MEDS ORDERED: Meclizine HCl 25 MG Tab PO SCH ×2 (10:00→18:00)
[2024-04-02 10:39] LABS: Base Excess Venous 2.4 mmol/L; Bicarbonate Venous 26.3 mmol/L (24.0-30.0); PCO2 Venous 35.2 mmHg (38-42); pH Blood Venous 7.48 (7.34-7.37)
[2024-04-02] MEDS ORDERED: NS 250 ML IV PRN (10:40)
[2024-04-02] MEDS ORDERED: Potassium Chl 20MEQ/Water100ML 100 ML IV SCH (10:45)
[2024-04-02 17:50] LABS: Bun/Creatinine Ratio 7.2 (12.0-20.0); Calcium, Blood 8.7 mg/dL (8.5-10.1); Creatinine, Blood 0.42 mg/dL (0.40-1.00); Potassium, Blood 3.9 mmol/L (3.5-5.5)
--- NOTE | 2024-04-02 18:14 | NUR ---
SHIFT SUMMARY PT A&OX4, RESPONDS AND CALLS APPROPRIATLY. ON ROOM AIR, SATS IN THE 90'S. ON BI SOLUTIONS ARCHITECT, HR 90-100'S, BP STABLE. LOVELL PATENT AND DRAINING TO GRAVITY. INSULIN AND D5 1/2 NS INFUSING. N/V T/O THIS SHIFT, MEDICATED WITH MECLIZINE AND REGLAN WITH SOME RELIEF. PT TOLERATED SIPS OF WATER, NO OTHER PO INTAKE.
--- NOTE | 2024-04-02 20:41 | NUR ---
ASSUMPTION OF CARE: ASSUMED CARE OF PT AT 1900. PT ALERT AND ORIENTED X4. FOLLOWS DIRECTION AND MAKES NEEDS KNOWN. STATES SHE IS TIRED AND WANTS TO BE LEFT ALONE. INSULIN DRIP AT 4.1 UPON REPORT. DROPPED DOWN TO 1.5 UNITS/HR CURRENTLY. D5 1/2 WITH KCL AT 125 ML/HR. PT DENIES N/V. DENIES SOB OR CP. HOG ROOM SUPERVISOR IN PLACE, SR, HR 90'S. SBP 130'S. PT ON RA WITH SPO2 MID TO HIGH 90'S. LUNGS CLEAR. LOVELL IN PLACE, DRAINING TO GRAVITY. REPOSITIONING IND IN BED. PIVS INTACT. POWERGLIDE TO BALWINDER, PATENT. BED LOW AND LOCKED, CALL LIGHT IN REACH.
[2024-04-02 22:25] LABS: Bun/Creatinine Ratio 7.5 (12.0-20.0); Calcium, Blood 8.5 mg/dL (8.5-10.1); Creatinine, Blood 0.4 mg/dL (0.40-1.00); Potassium, Blood 3.7 mmol/L (3.5-5.5)
[2024-04-03] VITALS (24 sets, daily range): BP systolic 103–146; BP diastolic 75–100
[2024-04-03] MEDS ORDERED: Meclizine HCl 25 MG Tab PO SCH
[2024-04-03 02:33] LABS: Bun/Creatinine Ratio 4.8 (12.0-20.0); Calcium, Blood 8.3 mg/dL (8.5-10.1); Creatinine, Blood 0.41 mg/dL (0.40-1.00); Potassium, Blood 3.9 mmol/L (3.5-5.5)
[2024-04-03 05:16] LABS: BASOPHILS ABSOLUTE AUTO 0.03 K/mm3 (0.00-0.23); BASOPHILS PERCENT AUTO 0 % (0-2); EOSINOPHILS ABSOLUTE AUTO 0.04 K/mm3 (0.00-0.68); EOSINOPHILS PERCENT AUTO 0 % (0-6); Hematocrit 31.1 % (33.0-51.0); Hemoglobin 11.1 g/dL (11.5-16.0); IMMATURE GRAN ABSOLUTE AUTO 0.09 K/mm3 (0.00-0.10); IMMATURE GRAN PERCENT AUTO 1 % (0-1); LYMPHOCYTES ABSOLUTE AUTO 3.25 K/mm3 (0.84-5.20); LYMPHOCYTES PERCENT AUTO 26 % (21-46); MONOCYTES ABSOLUTE AUTO 0.72 K/mm3 (0.16-1.47); MONOCYTES PERCENT AUTO 6 % (4-13); Mean Corpuscular HGB 27.7 pg (26.0-34.0); Mean Corpuscular HGB Conc 35.7 g/dL (31.5-36.5); Mean Corpuscular Volume 78 fL (80-100); Mean Platelet Volume 9.9 fL (9.1-12.4); NEUTROPHILS ABSOLUTE AUTO 8.16 K/mm3 (1.96-9.15); NEUTROPHILS PERCENT AUTO 67 % (41-73); Platelet Count 316 K/mm3 (150-400); RDW Coefficient Variation 13.3 % (11.7-14.2); RDW Standard Deviation 37.6 fL (35.1-46.3); Red Blood Cell Count 4.01 M/mm3 (3.80-5.20); White Blood Cell Count 12.29 K/mm3 (4.00-11.30)
--- NOTE | 2024-04-03 05:28 | NUR ---
SHIFT SUMMARY: NO ACUTE EVENTS OVERNIGHT. PT A&O X4, FOLLOWS DIRECTION AND MAKES NEEDS KNOWN. INSULIN AT 3.4 UNITS/HR, D5 1/2 KCL 40 AT 125 ML/HR. POWERGLIDE TO BALWINDER PATENT AND INFUSING. PIVS INTACT AND INFUSING. CONTINUES TO ENDORSE NAUSEA T/O THE NIGHT, MEDICATED PER EMAR. NO EMESIS THIS SHIFT. TOLERATING ICE CHIPS AND SIPS OF WATER. CONTINUES ON RA WITH SPO2 MID TO HIGH 90'S. LUNGS CLEAR. DIRECTOR OF PSYCHIATRY CONTINUOUS, SR WITH HR 90'S. SBP 120-130'S. DENIES CP/PRESSURE. LOVELL PATENT AND DRAINING TO GRAVITY. NO BM THIS SHIFT. BED LOW AND LOCKED, CALL LIGHT IN REACH.
[2024-04-03 05:36] LABS: Bun/Creatinine Ratio 7.3 (12.0-20.0); Calcium, Blood 8.6 mg/dL (8.5-10.1); Creatinine, Blood 0.41 mg/dL (0.40-1.00); Potassium, Blood 3.8 mmol/L (3.5-5.5)
--- NOTE | 2024-04-03 07:27 | NUR ---
ASSUMED CARE PT RESTING IN BED, AWAKENS TO VERBAL STIMULI. ON OCULAR PATHOLOGIST, BP STABLE, HR 100'S. ON ROOM AIR, SATS IN THE 90'S. LOVELL DRAINING TO GRAVITY. INSULING AND D5 1/2NS INFUSING. RN GAVE BEDSIDE REPORT, NO CONCERNS NEEDING ADDRESSED AT THIS TIME. CALL LIGHT IN REACH.
[2024-04-03 10:23] LABS: Bun/Creatinine Ratio 5.5 (12.0-20.0); Calcium, Blood 8.8 mg/dL (8.5-10.1); Creatinine, Blood 0.36 mg/dL (0.40-1.00); Potassium, Blood 3.8 mmol/L (3.5-5.5)
[2024-04-03 13:30] LABS: Bun/Creatinine Ratio 8.1 (12.0-20.0); Calcium, Blood 8.6 mg/dL (8.5-10.1); Creatinine, Blood 0.37 mg/dL (0.40-1.00); Potassium, Blood 3.9 mmol/L (3.5-5.5)
[2024-04-03] MEDS ORDERED: Thiamine HCl 100 MG in NS 50 ML IV SCH (18:00)
--- NOTE | 2024-04-03 18:03 | NUR ---
PROVIDER AT BEDSIDE UPON DOING CATH CARE, NOTICED MEDIUM AMOUNT OF DARK/BROWN BLOOD ON PT CHRISTOPHER AREA AND YATES PAD. PT STATED IT IS AROUND THE TIME OF HER NEXT MENSTRUAL CYCLE, AND IT IS NORMALLY DARK IN COLOR. STATES HER PERIODS ARE IRREGULAR. WAS UNCLEAR IF BLOOD WAS VAGINAL OR RECTAL, CALLED DR STEVE TO BEDSIDE FOR ASSESSMENT. PER DR. STEVE, CONTINUE TO WATCH FOR BLEEDING AND ASSESS SOURCE OF BLEEDING. NO ORDERS AT THIS TIME.
--- NOTE | 2024-04-03 18:09 | NUR ---
PROVIDER NOTIFIED PT STATED SENSITIVITY TO LIGHT, SMELL, AND SOUND ARE NEW SHE DID NOT EXPERIENCE THESE SX DURING HER LAST ADMISSION FOR DKA. PT ALSO COMPLAINED OF RINGING IN R EAR THAT CONTRIBUTES TO HER NAUSEA. MOVEMENT ALSO CONTRIBUTED TO HER NAUSEA. PT STATED SHE DID HAVE N/V DURING HER LAST ADMISSION FOR DKA, BUT STATED "IT FEELS DIFFERENT THIS TIME". EXPRESSED CONCERNS TO DR STEVE REGARDING NEW SX OF SENSITIVITY. NO NEW ORDERS AT THIS TIME.
--- NOTE | 2024-04-03 18:26 | NUR ---
SHIFT SUMMARY PT A&OX4, RESPONDING AND CALLING APPROPRIATLY. ON ROOM AIR, SATS > 92%. PIPE OUT WORKER IN PLACE, HR 90-10O'S, DENIES CP/PRESSURE. LOVELL PATENT AND DRAINING TO GRAVITY. N/V DIFFICULT TO MANAGE THIS SHIFT, PRNS GIVEN WITH SOME RELIEF. NOT TOLERATING PO INTAKE. INSULIN AND D5 1/2NS INFUSING. PT WENT TO CT THIS AFTERNOON, TOLERATED TRANSFER FAIR. SEE OTHER NOTES FOR SHIFT EVENTS. PT RESTING IN BED WITH CALL LIGHT IN REACH.
--- NOTE | 2024-04-03 19:30 | NUR ---
ASSESSMENT/ASSUMED CARE PT RESTING WITH EYES CLOSED. ANSWERS QUESTIONS APPROP. C/O N/V AND LOW BACK PAIN. WILL MED WITH ATIVAN FOR N/V AND CALL MD FOR PAIN MEDICATION. LUNGS CLEAR ON ROOMAIR. RESP EVEN AND NONLABORED. DENIES SOB OR COUGH. HEART REGULAR 90-100'S. BP STABLE. NO EDEMA. BT+ HYPERACTIVE. ABD TENDER TO PALPATIONB. PT HAD EMESIS OF 50 ML YELLOW BILE. POWER GLIDE TO LEFT UPPER ARM WITH D5 1/2 at 125 ML/HR. SITE CLEAR AND DRSG INTACT. ABLE TO DRAW BLOOD AND FLUSH WITHOUT DIFFICULTY. IV 20G LEFT AC SALINE LOCKED. FLUSHED WITHOUT DIFFICULTY. SITE CLEAR. IV 20G TO RIGHT WRIST WITH NS AT 10 ML/HR AND INSULIN 2.4 UNITS/HR. LOVELL CATH PATENT DRAINING YELLOW URINE. MAEW. TURNING AND MOVING SELF IN BED.
[2024-04-03 20:36] LABS: Bun/Creatinine Ratio 7.1 (12.0-20.0); Calcium, Blood 8.7 mg/dL (8.5-10.1); Creatinine, Blood 0.42 mg/dL (0.40-1.00); Potassium, Blood 3.8 mmol/L (3.5-5.5)
--- NOTE | 2024-04-03 20:38 | NUR ---
CALL TO MD CALL TO DR CRISTINA REGARDING LOW BACK PAIN AND N/V. HE WILL REVIEW THE CHART AND PLACE ORDERS
[2024-04-03] MEDS ORDERED: Dronabinol 2.5 MG Cap PO SCH (21:00)
[2024-04-03] MEDS ORDERED: Acetaminophen 650 MG Supp PR PRN (21:10)
[2024-04-03] MEDS ORDERED: Ketorolac Tromethamine 15mg Vial IV PRN (21:25)
--- NOTE | 2024-04-03 21:50 | NUR ---
PAIN PT C/O LOW BACK PAIN AND ABD PAIN 10/23. MED PER EMAR
[2024-04-04] VITALS (25 sets, daily range): BP systolic 101–137; BP diastolic 72–100
[2024-04-04 00:36] LABS: Bun/Creatinine Ratio 7.9 (12.0-20.0); Calcium, Blood 8.5 mg/dL (8.5-10.1); Creatinine, Blood 0.38 mg/dL (0.40-1.00); Potassium, Blood 3.8 mmol/L (3.5-5.5)
[2024-04-04 04:11] LABS: BASOPHILS ABSOLUTE AUTO 0.04 K/mm3 (0.00-0.23); BASOPHILS PERCENT AUTO 0 % (0-2); EOSINOPHILS ABSOLUTE AUTO 0.16 K/mm3 (0.00-0.68); EOSINOPHILS PERCENT AUTO 1 % (0-6); Hematocrit 31.6 % (33.0-51.0); Hemoglobin 11.4 g/dL (11.5-16.0); IMMATURE GRAN ABSOLUTE AUTO 0.12 K/mm3 (0.00-0.10); IMMATURE GRAN PERCENT AUTO 1 % (0-1); LYMPHOCYTES ABSOLUTE AUTO 5.16 K/mm3 (0.84-5.20); LYMPHOCYTES PERCENT AUTO 40 % (21-46); MONOCYTES ABSOLUTE AUTO 0.88 K/mm3 (0.16-1.47); MONOCYTES PERCENT AUTO 7 % (4-13); Mean Corpuscular HGB Conc 36.1 g/dL (31.5-36.5); Mean Corpuscular Volume 78 fL (80-100); Mean Platelet Volume 9.6 fL (9.1-12.4); NEUTROPHILS ABSOLUTE AUTO 6.58 K/mm3 (1.96-9.15); NEUTROPHILS PERCENT AUTO 51 % (41-73); Platelet Count 376 K/mm3 (150-400); RDW Coefficient Variation 13.1 % (11.7-14.2); RDW Standard Deviation 36.6 fL (35.1-46.3); Red Blood Cell Count 4.07 M/mm3 (3.80-5.20); White Blood Cell Count 12.94 K/mm3 (4.00-11.30)
[2024-04-04 04:28] LABS: Albumin, Blood 2.4 g/dL (3.4-5.0); Albumin/Globulin Ratio 0.6 (0.8-1.8); Bilirubin, Total 0.5 mg/dL (0.1-1.0); Bun/Creatinine Ratio 6.1 (12.0-20.0); Calcium, Blood 8.6 mg/dL (8.5-10.1); Creatinine, Blood 0.49 mg/dL (0.40-1.00); Globulin, Blood 4.3 g/dL (2.2-4.0); Magnesium, Blood 1.9 mg/dL (1.6-2.4); Phosphorus, Blood 1.1 mg/dL (2.5-4.9); Potassium, Blood 3.8 mmol/L (3.5-5.5); Total Protein, Blood 6.7 g/dL (6.4-8.2)
--- NOTE | 2024-04-04 06:06 | NUR ---
SHIFT SUMMARY PT RESTING QUIETLY. MOVING AND TURNING SELF IN BED. PT HAD YELLOW BILE EMESIS ONCE DURING THE NIGHT. WAS MED WITH ATIVAN, PT STATED,"THAT REALLY HELPED WITH THE NAUSEA". PT C/O LOW BACK AND ABD PAIN, MED WITH TYLENOL AND TORADOL WITH GOOD RESULTS. LUNGS CLEAR ON ROOMAIR. RESP EVEN AND NONLABORED. HEART RATE 90-100'S. BP STABLE. LOVELL CATH DRAINING YELLOW URINE. PT HAS TAKEN SMALL AMT OF TEA AND STATES,"I'M FEELING BETTER AND STRONGER TODAY". INSULIN GTT CURRENTLY AT 1.8 UNITS/KG/HR. BLOOD GLUCOSE CHECKED Q1HR. PLAN TO TITRATE OFF INSULIN TODAY. REPORT TO ON COMING NURSE
[2024-04-04] MEDS ORDERED: Mag Sulfate 1 GM/D5% 100ML 100 ML IV STA (07:06)
[2024-04-04 08:22] LABS: Source, Urine Foley catheter
[2024-04-04 08:26] LABS: Appearance, Urine Clear (Clear); Bilirubin, Urine Neg (Neg); Blood, Urine Neg (Neg); Glucose Qualitative, Urine 2+ (Neg); Ketones, Urine Neg (Neg); Leukocyte Esterase, Urine Neg (Neg); Nitrite, Urine Neg (Neg); Protein, Urine Neg (Neg); Specific Gravity, Urine 1.005 (1.003-1.022); Urobilinogen, Urine NORM (Normal)
[2024-04-04 08:31] LABS: Bun/Creatinine Ratio 7.3 (12.0-20.0); Calcium, Blood 8.3 mg/dL (8.5-10.1); Creatinine, Blood 0.41 mg/dL (0.40-1.00); Potassium, Blood 3.7 mmol/L (3.5-5.5)
[2024-04-04 08:36] LABS: Color, Urine No Color (P-Yellow)
[2024-04-04 13:20] LABS: Bun/Creatinine Ratio 8.1 (12.0-20.0); Calcium, Blood 8.4 mg/dL (8.5-10.1); Creatinine, Blood 0.37 mg/dL (0.40-1.00); Potassium, Blood 3.9 mmol/L (3.5-5.5)
--- NOTE | 2024-04-04 14:10 | NUR ---
"Spiritual Care Visit | Nurse Request Pt. is awake in bed when she welcomes my visit. Pt. is pleasant, but displays evidence of being emotionally guarded. Pt. verbalized that she has felt better today, as she is not at nausous. Briefly considered matters of giorgio and belief. This internet consultant asked the Pt. if she felt safe here at the hospital, and the Pt. affirmed that she does feel safe here. Pt. did display evidence of trust. Prayed with the Pt. Pt. verbalzied gratitude for the spiritual care visit. This internet consultant viewed this visit as a successful intoductory visit."
[2024-04-04] MEDS ORDERED: Lactated Ringer's 1,000 ML IV SCH (17:00)
[2024-04-04] MEDS ORDERED: Insulin Human Lispro 100 Units/ML 3ML Syringe SC SCH ×2 (17:30→21:00)
[2024-04-04 17:33] LABS: Bun/Creatinine Ratio 7.8 (12.0-20.0); Calcium, Blood 8.5 mg/dL (8.5-10.1); Creatinine, Blood 0.39 mg/dL (0.40-1.00)
[2024-04-04] MEDS ORDERED: Sodium Phosphate 30 MM in Dextrose 5% 500 ML IV STA (18:22)
--- NOTE | 2024-04-04 18:29 | NUR ---
PATIENT A/OX4. MILD CONFUSION DURING AFTERNOON HOURS BUT CLEARED UP BY EVENING TIME. SAFETY AWARENESS MAINTAINED THROUGHOUT SHIFT. PATIENT VERY HESITANT TO INCREASE PO INTAKE. CLEAR LIQUID DIET MAINTAINED, ADVANCE TOLERATED. NO EMESIS DURING SHIFT BUT BLOATING AND DISTENTION ARE NOTED. HOWEVER PATIENT HAS STARTED MENSTRAL CYCLE AND HAS SOME BLOODY DISCHARGE. INSULIN GTT TURNED OFF. INSULIN SBQ STARTED, LOVELL REMOVED; DUE TO VOID AT 0100.
[2024-04-04] MEDS ORDERED: Insulin NPH 10 Unit/0.1ML (Single Dose) SC ONE (20:20)
--- NOTE | 2024-04-04 20:24 | NUR ---
ASSUMPTION OF CARE ASSUMED CARE OF PATIENT AT 1900, BEDSIDE SHIFT REPORT RECEIVED FROM JLUIS RN. PT RESTING IN BED, SLEEPING BUT AROUSABLE. PT MAKES RANDOM STATEMENTS WHEN GROGGY, WHILE AWAKE PT ORIENTED X4. PT ANSWERS QUESTIONS APPROPRIATELY, FOLLOWS DIRECTION WHEN PROMPTED AND IS ABLE TO MAKE HER NEEDS KNOWN. PT MOVES EXTREMITIES EQUALLY BILATERALLY. AMBULATES IN THE ROOM WITH ASSISTANCE, WEAK. HR 90-100'S SINUS, MAP >65. PT DENIES CP/PRESSURE. ABDOMEN SOFT, BOWEL TONES ACTIVE THROUGHOUT, PT DENIES NAUSEA AT TIME OF ASSESSMENT. PT AMBULATES TO BEDSIDE TOILET TO VOID, URINE RED, PT STATES SHE IS ON HER MENSTRUAL CYCLE. PIV IN PLACE TO RIGHT WRIST AND LAC. POWERGLIDE IN PLACE TO BALWINDER. LR INFUSING AT 125MLS/HR, SODIUM PHOSPHATE INFUSING PER EMAR. BED IN LOWEST POSITION, CALL LIGHT WITHIN REACH, CARE CONTINUES.
[2024-04-04] MEDS ORDERED: Insulin NPH 100 Unit / ML 10ML Vial SC ONE (20:30)
--- NOTE | 2024-04-04 20:41 | NUR ---
PT UPDATE PT HAS NIGHT TIME DOSE OF INSULIN GLARGINE ORDERED ON THE EMAR, LISTED ALLERGY TO INSULIN GLARGINE ALSO NOTED. SPOKE WITH PT REGARDING INSULIN REACTION, PT STATES THAT SHE HAS HAD MULTIPLE DIFFERENT REACTIONS TO INSULIN. CALL PLACED TO HOSPITALIST FOR CLARIFICATION ON INSULIN DOSING. ORDERS RECEIVED. CARE CONTINUES.
[2024-04-04 20:53] LABS: Bun/Creatinine Ratio 8.8 (12.0-20.0); Calcium, Blood 8.2 mg/dL (8.5-10.1); Creatinine, Blood 0.34 mg/dL (0.40-1.00); Potassium, Blood 4.2 mmol/L (3.5-5.5)
[2024-04-04] MEDS ORDERED: Insulin Glargine-Yfgn 100 Unit/mL 3 ML SYR SC SCH (21:00)
[2024-04-05] VITALS (8 sets, daily range): BP systolic 104–152; BP diastolic 72–98
[2024-04-05 02:52] LABS: Bun/Creatinine Ratio 8.1 (12.0-20.0); Calcium, Blood 8.3 mg/dL (8.5-10.1); Creatinine, Blood 0.37 mg/dL (0.40-1.00); Potassium, Blood 3.9 mmol/L (3.5-5.5)
--- NOTE | 2024-04-05 06:07 | NUR ---
SHIFT SUMMARY NO ACUTE CHANGES THIS SHIFT. PT CONTINUES TO REST IN BED, SLEEPING BUT AROUSABLE. PT ORIENTED X4, ANSWERS QUESTIONS APPROPROPRIATELY, FOLLOWS DIRECTION WHEN PROMPTED AND IS ABLE TO MAKE HER NEEDS KNOWN. PT MOVES EXTREMITIES EQUALLY BILATERALLY. PT AMBULATES IN THE ROOM WITH NURSE ASSIST. HR 80-100'S SINUS, MAP >65. PT ON RA, OXYGEN SATURATION >95%. ABDOMEN SOFT, BOWEL TONES ACTIVE THROUGHOUT. PT COMPLAINED OF NAUSEA ONCE THIS SHIFT, MEDICATED PER EMAR WITH GOOD EFFECT. PT AMBULATES TO BEDSIDE TOILET TO VOID. PIV IN PLACE TO RIGHT WRIST, AND LAC. POWERGLIDE IN PLACE TO BALWINDER. LR INFUSING AT 125MLS/HR. BED IN LOWEST POSITION, CALL LIGHT WITHIN REACH, CARE CONTINUES.
[2024-04-05] MEDS ORDERED: NS 1,000 ML IV SCH ×2 (08:00→22:20)
[2024-04-05] MEDS ORDERED: Insulin Glargine-Yfgn 100 Unit/mL 3 ML SYR SC SCH (11:00)
[2024-04-05] MEDS ORDERED: diphenhydrAMINE HCl 12.5 MG/5 ML 5MLUDC (Alcohol/Dye Free) PO SCH (11:00)
[2024-04-05] MEDS ORDERED: DiphenhydrAMINE HCL/Zinc Acet Cream TOP SCH (11:00)
[2024-04-05 13:30] LABS: Albumin, Blood 2.4 g/dL (3.4-5.0); Anion Gap 9 mmol/L (3-11); Blood Urea Nitrogen 4 mg/dL (8-24); Bun/Creatinine Ratio 10.2 (12.0-20.0); CO2, Blood 30 mmol/L (21-32); Calcium, Blood 8.3 mg/dL (8.5-10.1); Chloride, Blood 104 mmol/L (98-108); Creatinine, Blood 0.39 mg/dL (0.40-1.00); Glomerular Filtration Rate 136 (60-); Glucose, Blood 120 mg/dL (70-99); Phosphorus, Blood 4.6 mg/dL (2.5-4.9); Potassium, Blood 3.1 mmol/L (3.5-5.5); Sodium, Blood 140 mmol/L (136-145)
[2024-04-05] MEDS ORDERED: Potassium Chloride 20 MEQ TabCR PO ONE (16:00)
--- NOTE | 2024-04-05 16:18 | NUR ---
REPORT GIVEN TO KAYLA RILEY WHO WILL BE TAKING THE PATIENT IN ROOM 361. PATIENT AFEBRILE, VSS, MILD NAUSEA WITH IMPROVEMENT FOLLOW ZOFRAN DOSE. PATIENT UPDATED ON TRANSFER AND ALL QUESTIONS ANSWERED. PATIENT TAKEN VIA WHEELCHAIR. MEDS SENT WITH PATIENT TO NEXT ROOM.
--- NOTE | 2024-04-05 18:27 | NUR ---
SHIFT NOTE: PT TRANSFERED FROM ICU. SHE IS A/OX4 ABLE TO MAKE HER NEEDS KNOWN. SHE AMBULATES WITH 1P ASSIT TO THE BATHROOM. SHE IS ON RA AND TELE. NO ACUTE EVENTS SINCE ARRIVAL ON UNIT. SHE HAS FLUIDS RUNNING PER EMAR. BLOOD SUGARS LOW 100S UPON ARRIVAL.
[2024-04-06 05:43] VITALS: BP 110/76
[2024-04-06 05:56] LABS: BASOPHILS ABSOLUTE AUTO 0.04 K/mm3 (0.00-0.23); BASOPHILS PERCENT AUTO 0 % (0-2); EOSINOPHILS ABSOLUTE AUTO 0.41 K/mm3 (0.00-0.68); EOSINOPHILS PERCENT AUTO 4 % (0-6); Hematocrit 29.4 % (33.0-51.0); Hemoglobin 10.1 g/dL (11.5-16.0); IMMATURE GRAN ABSOLUTE AUTO 0.07 K/mm3 (0.00-0.10); IMMATURE GRAN PERCENT AUTO 1 % (0-1); LYMPHOCYTES ABSOLUTE AUTO 4.71 K/mm3 (0.84-5.20); LYMPHOCYTES PERCENT AUTO 45 % (21-46); MONOCYTES ABSOLUTE AUTO 0.83 K/mm3 (0.16-1.47); MONOCYTES PERCENT AUTO 8 % (4-13); Mean Corpuscular HGB 27.9 pg (26.0-34.0); Mean Corpuscular HGB Conc 34.4 g/dL (31.5-36.5); Mean Corpuscular Volume 81 fL (80-100); Mean Platelet Volume 9.2 fL (9.1-12.4); NEUTROPHILS ABSOLUTE AUTO 4.36 K/mm3 (1.96-9.15); NEUTROPHILS PERCENT AUTO 42 % (41-73); Platelet Count 401 K/mm3 (150-400); RDW Coefficient Variation 13.2 % (11.7-14.2); RDW Standard Deviation 38.4 fL (35.1-46.3); Red Blood Cell Count 3.62 M/mm3 (3.80-5.20); White Blood Cell Count 10.42 K/mm3 (4.00-11.30)
[2024-04-06 06:26] LABS: Albumin, Blood 2.2 g/dL (3.4-5.0); Albumin/Globulin Ratio 0.6 (0.8-1.8); Bilirubin, Total 0.5 mg/dL (0.1-1.0); Bun/Creatinine Ratio 4.7 (12.0-20.0); Calcium, Blood 8.2 mg/dL (8.5-10.1); Creatinine, Blood 0.43 mg/dL (0.40-1.00); Globulin, Blood 3.7 g/dL (2.2-4.0); Potassium, Blood 3.5 mmol/L (3.5-5.5); Total Protein, Blood 5.9 g/dL (6.4-8.2)
[2024-04-06 07:31] VITALS: BP 128/86
[2024-04-06] MEDS ORDERED: Benadryl Itch28.3 G1 TOP (11:18)
[2024-04-06] MEDS ORDERED: BASAGLAR K100 UNIT/1 SC (11:19)
[2024-04-06] MEDS ORDERED: HUMALOG KW100 UNIT/1 SC (13:26)
--- NOTE | 2024-04-06 13:39 | NUR ---
PT DISCHARGED AT 1335. PT DISCUSSED USING HER CURRENT HOME INSULINS WITH DR OLSON. AFTER LONG DISCUSSION OF HOME MEDS HE DISCHARGE PT ON HER HOME DOSES. PT SENT WITH SCRIPT TO [facility]. PT VERBALIZED SHE WILL KEEP MONITORING CBGs AND TAKE HER INSULIN SHE IS ORDERED. PT HAD FAMILY COME TO TRANSPORT HOME.PERSONAL ITEMS TAKEN WITH HER. PT REFUSED ESCORT OUT AND AMBULATED ON HER OWN WITH FAMILY TO EXIT. AOX4 AND COOPERATIVE OF ALL CARE.
== END 2024-04-06 13:37 | disposition home or self-care (01) | DRG 638 ==
LOC: ER 01:21 → ICUE 03:21 → MEDS 04-05 16:45
PROVIDERS: Emergency Medicine; Family Medicine; Internal Medicine; Student in an Organized Health Care Education/Training Program; ADMIT Student in an Organized Health Care Education/Training Program
DX: E10.10 Type 1 diabetes mellitus with ketoacidosis without coma (principal); E87.1 Hypo-osmolality and hyponatremia; R65.10 Systemic inflammatory response syndrome (SIRS) of non-infectious origin without acute organ dysfunction; Z28.21 Immunization not carried out because of patient refusal; Z98.890 Other specified postprocedural states; Z88.8 Allergy status to other drugs, medicaments and biological substances; Z88.0 Allergy status to penicillin; Z88.2 Allergy status to sulfonamides; Z91.018 Allergy to other foods; Z79.84 Long term (current) use of oral hypoglycemic drugs; Z79.4 Long term (current) use of insulin; Z79.899 Other long term (current) drug therapy; E83.39 Other disorders of phosphorus metabolism; E87.6 Hypokalemia; E83.41 Hypermagnesemia
CPT/HCPCS: 0241U; 36415; 51702; 71045; 74177; 80048; 80053; 80069; 81001; 81003; 81025; 82010; 82803; 82947; 83605; 83690; 83735; 84100; 84145; 84443; 85025; 87040; 87077; 87086; 93005; 93010; 94762; 96361; 96374; 99285-25; A9270; C1751; J0744; J1650; J1815; J1885; J2060; J2405; J2765; J3411; J3475; J3480; J7030; J7042; J7050; J7060; J7120; Q9967

== ENCOUNTER → 2024-11-10 | Outpatient (CLI) | payer OTHER ==
[~2024-11-10] MED LIST changes: +BASAGLAR K100 UNIT/1 SC; +Benadryl Itch28.3 G1 TOP; +CYMBALTA30 M2; +HUMALOG KW100 UNIT/1 SC
== END ==
LOC: LAB SHORT 15:37 → LAB 15:37
DX: R21 Rash and other nonspecific skin eruption (principal)
CPT/HCPCS: 88312